=== PATIENT | female | born 1995 | race Two or more races ===

== ENCOUNTER 2019-03-17 23:43 | Emergency (ER) | payer OTHER ==
[~2019-03-17] VITALS: Ht 149.9 cm; Wt 62.1 kg
[2019-03-18] MEDS ORDERED: PRENATABS RX T1 EACH (00:19)
== END 2019-03-18 03:54 | disposition home or self-care (01) ==
LOC: ER 23:43
DX: O26.892 Other specified pregnancy related conditions, second trimester (principal); R10.2 Pelvic and perineal pain; Z34.82 Encounter for supervision of other normal pregnancy, second trimester

== ENCOUNTER 2019-08-05 07:17 | Inpatient (IN) | payer OTHER ==
[~2019-08-05] VITALS: Ht 147.3 cm; Wt 63.5 kg
[~2019-08-05 07:17] MED LIST: PRENATABS RX T1 EACH
== END 2019-08-08 17:34 | DRG 788 ==
LOC: OB/GYN 07:17 → LDR 07:17 → OB/GYN 15:56
PROVIDERS: ADMIT Specialist
PROC: 4A1HXCZ Monitoring of Products of Conception, Cardiac Rate, External Approach (ICD-10-PCS; 2019-08-05)
PROC: 4A033R1 Measurement of Arterial Saturation, Peripheral, Percutaneous Approach (ICD-10-PCS; 2019-08-05)
PROC: 10D00Z1 Extraction of Products of Conception, Low, Open Approach (ICD-10-PCS; principal; 2019-08-05 13:30)
DX: O82 Encounter for cesarean delivery without indication (principal); O34.211 Maternal care for low transverse scar from previous cesarean delivery; Z3A.39 39 weeks gestation of pregnancy; Z37.0 Single live birth; Z22.330 Carrier of Group B streptococcus